=== PATIENT | female | born 1940 | race American Indian/Alaskan Native ===

== ENCOUNTER 2021-01-09 09:27 | Outpatient (CLI) | payer MEDICARE ==
--- NOTE | 2021-01-09 10:26 | Mammography Report ---
DIGITAL DIAGNOSTIC MAMMOGRAM WITH CAD , 01/09/2021 CLINICAL INFORMATION / INDICATION: Patient is palpating a lump in the superior left breast/chest. Pat kevin has history of right mastectomy. TECHNIQUE: Digital left mammographic imaging was performed. This examination was interpreted with the benefit of Computer-aided Detection analysis. COMPARISON: Prior left mammogram 11/16/2019 and 01/03/2018 FINDINGS: Breast Density: The breast is heterogeneously dense, which may obscure small masses. No dominant mass, suspicious calcifications or architectural distortion in the left breast. Due to the superior and posterior location of the palpable lump, the lump could not be included on ma mmographic images and therefore is not visualized. Further evaluation with left ultrasound will need to be performed. Unfortunately there is no angiography technologist available today, and ultrasound co uld not be performed.. IMPRESSION: No mammographic correlate for the palpable lump in the superior left breast/chest. Patien t will need to return for further evaluation with ultrasound of the palpable lump. Follow up recommendation: Ultrasound BI-RADS Category 0: Incomplete. Needs additional imaging evaluation and/or prior mammograms for leanna mahajan. A "normal" or negative report should not discourage follow up or biopsy of a clinically significant f inding. A written summary of these findings will be mailed to the patient. The patient will be entered into a mammography reporting system which will generate a reminder letter for the patient's next appointmen t at the appropriate interval. According to the [employer], yearly mammograms are recommended starting at age 40 and continuing as long as a woman is in good health. Breast MRI is recommended for women with an fracisco roximately 20-25% or greater lifetime risk of breast cancer, including women with a strong family his tory of breast or ovarian cancer and women who have been treated for Hodgkin's disease. Signer Name: Inga Grimm MD Signed: 01/09/2021 10:21 AM Workstation Name: [id number]
== END 2021-01-09 09:28 | disposition home or self-care (01) ==
LOC: SPVWC 09:27
PROVIDERS: ATTEND Surgery
DX: R92.8 Other abnormal and inconclusive findings on diagnostic imaging of breast (principal)

== ENCOUNTER 2021-01-19 12:27 | Outpatient (CLI) | payer MEDICARE ==
--- NOTE | 2021-01-20 06:53 | Ultrasound Report ---
ULTRASOUND BREAST LEFT LIMITED, 01/19/2021 CLINICAL INFORMATION / INDICATION: The patient reports a palpable lump in the left axilla. Diagnostic mammogram was performed on 01/09/2021. She has a personal history of right breast cancer treated with mastectomy. TECHNIQUE: Targeted ultrasound evaluation was performed of the area of interest. COMPARISON: Left diagnostic mammogram, 01/09/2021 and screening mammogram, 11/16/2019 FINDINGS: Sonographic evaluation of the right axilla demonstrates a lobulated hypoechoic solid mass measuring 2 .2 x 2.1 x 1.9 cm. There is mild associated peripheral vascularity. Several additional smaller hypoec hoic masses are also noted. This area corresponds to the patient's area of palpable concern. Review of the recent diagnostic mammogram demonstrates no discrete left breast abnormality. IMPRESSION: Multiple hypoechoic left axillary masses most likely representing numerous enlarged lymph nodes. The dominant mass measures 2.2 cm. Findings are suspicious for malignancy and therefore ultra sound-guided biopsy is recommended. Follow up recommendation: Biopsy BI-RADS Category 5: Highly Suggestive of Malignancy. A normal or "negative" report should not preclude biopsy or follow-up of a clinically suspicious find ing. Signer Name: Estefani Jaimes MD Signed: 01/19/2021 1:18 PM Workstation Name: [id number]
== END 2021-01-19 12:28 | disposition home or self-care (01) ==
LOC: SPVWC 12:27
PROVIDERS: ATTEND Surgery
DX: N63.20 Unspecified lump in the left breast, unspecified quadrant (principal); R92.8 Other abnormal and inconclusive findings on diagnostic imaging of breast; N63.21 Unspecified lump in the left breast, upper outer quadrant; Z85.3 Personal history of malignant neoplasm of breast

== ENCOUNTER 2021-02-21 08:45 | Outpatient (CLI) | payer MEDICARE ==
--- NOTE | 2021-02-21 10:21 | Ultrasound Report ---
Procedure: Ultrasound-guided left axillary biopsy, 02/21/2021 Clinical information/indication: Left axillary mass. Comparison: Left axillary ultrasound, 01/19/2021. Left diagnostic mammogram, 01/09/2021. Procedure: The benefits, indications and risks were discussed with the patient including but not limi danika to bleeding, infection, hematoma formation, and inadequate tissue sampling. The patient agreed to proceed with both verbal and written consent. A timeout procedure was performed using 2 patient iden tifiers. The breast was prepped and draped in the usual sterile fashion. Lidocaine 1% with and without epineph rine were used for local anesthesia. Under direct ultrasound guidance, a total of 3 core samples were obtained of the enlarged left axillary lymph node. A biopsy marker was then placed. Biopsy device w as removed and hemostasis achieved with manual pressure. A sterile dressing was applied to the skin. The patient tolerated the procedure without difficulty. No complications were encountered. Postbiopsy instructions were discussed with the patient and given in writing. Core specimens were placed in bot h preservative and saline for flow cytology evaluation. IMPRESSION: 1. Technically successful left axillary lymph node biopsy. Biopsy results are pending and will be rep orted in an addendum. Signer Name: Estefani Jaimes MD Signed: 02/21/2021 10:16 AM Workstation Name: [id number]
== END 2021-02-21 08:46 | disposition home or self-care (01) ==
LOC: SPVWC 08:45
PROVIDERS: ATTEND Surgery
DX: R92.8 Other abnormal and inconclusive findings on diagnostic imaging of breast (principal); R92.2 Inconclusive mammogram
CPT/HCPCS: 38505; 76942; 88184; 88185; 88305

== ENCOUNTER 2022-01-31 12:37 | Outpatient (CLI) | payer MEDICARE ==
--- NOTE | 2022-01-31 15:14 | Mammography Report ---
DEXA BONE DENSITY SCAN INDICATION / CLINICAL INFORMATION: POSTMENOPAUSAL STATE. 81 years Female COMPARISON: None available. LUMBAR SPINE, L1-L4: - Bone mineral density (BMD) = 0.769 g/cm2. - T-score = -3.5 - Change (%) since most recent prior (if available): None available. LEFT HIP, NECK : - Bone mineral density (BMD) = 0.582 g/cm2. - T-score = -2.6 - Change (%) since most recent prior (if available): None available. IMPRESSION: 1. WHO Classification: Osteoporosis. Fracture Risk: High. Note: 10-Year Fracture Risk (FRAX) not reported. This DEXA unit lacks FRAX functionality. BMD Reporting Guidelines (ISCD, 2015) BMD Reporting in Postmenopausal Women and in Men Age 50 and Older - T-scores are preferred. - The WHO densitometric classification is applicable. BMD Reporting in Females Prior to Menopause and in Males Younger Than Age 50 - Z-scores, not T-scores, are preferred. This is particularly important in children. - A Z-score of -2.0 or lower is defined as below the expected range for age, and a Z-score above -2.0 is within the expected range for age. - Osteoporosis cannot be diagnosed in men under age 50 on the basis of BMD alone. - The WHO diagnostic criteria may be applied to women in the menopausal transition. http://www.iscd.org/official-positions/9095-ybln-oeftjjqq-positions-adult/ Signer Name: Byron Vega MD Signed: 01/31/2022 3:10 PM Workstation Name: [id number]
== END 2022-01-31 12:38 | disposition home or self-care (01) ==
LOC: SPVWC 12:37
PROVIDERS: ATTEND Family Medicine
DX: M81.0 Age-related osteoporosis without current pathological fracture (principal); Z78.0 Asymptomatic menopausal state
CPT/HCPCS: 77080